=== PATIENT | male | born 1950 | race Caucasian/White ===

== ENCOUNTER 2019-11-20 00:32 | Emergency (ER) | payer BC, MEDICARE, OTHER ==
--- NOTE | 2019-11-20 00:47 | ER Document Report ---
ED Medical Screen (RME) - General Chief Complaint: Chest Congestion Stated Complaint: CONGESTION/COUGH/NAUSEA Time Seen by Provider: 11/20/19 00:40 Primary Care Provider: FIGUEROA TAN MD [Primary Care Provider] - Follow up as needed Mode of Arrival: Wheelchair Information source: Patient, Relative Notes: 69-year-old male with history of restless leg syndrome, high cholesterol and high blood pressure presents to the emergency department with his for complaints of fever nausea vomiting diarrhea cough since Friday. Reports symptoms started Friday. Reports he felt a little bit better so he went to work but symptoms are worse today. Has not received his flu vaccine. reports he was so weak she had to help him walk today. reports decreased p.o. intake. He reports he has only been able to eat 1 sugar cookie and a doughnut since Friday... along with grits and sausage yesterday and today. approved reports he has been drinking Pepsi and iced tea. also reports she has been treating him with [id number] flu medicine that has acetaminophen in it. Reports he vomited 30 minutes prior to arrival. Also reports he drink ice tea on the way here. reports he has felt really hot but she has not taken his temperature. Denies chest and abdominal pain. I have greeted and performed a rapid initial assessment of this patient. A comprehensive ED assessment and evaluation of the patient, analysis of test results and completion of the medical decision making process will be conducted by additional ED providers. Physical Exam - Vital signs Vitals: Temp Pulse Resp BP Pulse Ox 100.1 F 76 16 141/66 H 97 11/20/19 00:38 11/20/19 00:38 11/20/19 00:38 11/20/19 00:38 11/20/19 00:38 Course - Vital Signs Vital signs: Temp Pulse Resp BP Pulse Ox 100.1 F 76 16 141/66 H 97 11/20/19 00:38 11/20/19 00:38 11/20/19 00:38 11/20/19 00:38 11/20/19 00:38 Doctor's Discharge - Discharge Referrals: FIGUEROA TAN MD [Primary Care Provider] - Follow up as needed
[2019-11-20] MEDS ORDERED: ONDANSETRON HCL INJ/PF 4 MG/2 ML SDV IV ONE (00:48)
[2019-11-20] MEDS ORDERED: IBUPROFEN 800 MG TABLET PO ONE (00:48)
[2019-11-20] MEDS ORDERED: NORMAL SALINE 1000 ML 1,000 ML IV ONE (00:48)
[2019-11-20 01:33] LABS: ABSOLUTE LYMPHOCYTES (AUTO) 0.7 10^3/uL (0.5-4.7); ABSOLUTE MONOCYTES (AUTO) 0.6 10^3/uL (0.1-1.4); BASOPHILS % (AUTO) 0.7 % (0-2); HEMATOCRIT 37.2 % (37.9-51.0); HEMOGLOBIN 12.7 g/dL (13.5-17.0); LYMPHOCYTES % (AUTO) 17.1 % (13-45); MEAN CORPUSCULAR HEMOGLOBIN 29.8 pg (27.0-33.4); MEAN CORPUSCULAR HGB CONC 34.2 g/dL (32.0-36.0); MEAN CORPUSCULAR VOLUME 87 fl (80-97); MONOCYTES % (AUTO) 13.9 % (3-13); PLATELET COUNT 140 10^3/uL (150-450); RED BLOOD COUNT 4.27 10^6/uL (4.35-5.55); RED CELL DISTRIBUTION WIDTH 13.8 % (11.5-14.0); SEGMENTED NEUTROPHILS % (AUTO) 68.3 % (42-78); TOTAL CELLS COUNTED % (AUTO) 100 %; WHITE BLOOD COUNT 4.3 10^3/uL (4.0-10.5)
[2019-11-20 01:50] LABS: A TYPE INFLUENZA AG NEGATIVE (NEGATIVE); B INFLUENZA AG NEGATIVE (NEGATIVE)
[2019-11-20 01:56] LABS: ALBUMIN 3.4 g/dL (3.5-5.0); ALKALINE PHOSPHATASE 48 U/L (38-126); ANION GAP 7 (5-19); ASPARTATE AMINO TRANSFERASE 32 U/L (17-59); BILIRUBIN,TOTAL 0.4 mg/dL (0.2-1.3); BLOOD UREA NITROGEN 21 mg/dL (7-20); CALCIUM 8.2 mg/dL (8.4-10.2); CARBON DIOXIDE 24 mmol/L (22-30); CHLORIDE 100 mmol/L (98-107); GLUCOSE 137 mg/dL (75-110); POTASSIUM 3.7 mmol/L (3.6-5.0)
[2019-11-20] MEDS ORDERED: METOCLOPRAMIDE HCL INJ/PF 10 MG/2 ML SDV IV ONE (02:12)
[2019-11-20] MEDS ORDERED: PANTOPRAZOLE SODIUM 40 MG VIAL IV ONE (02:12)
--- NOTE | 2019-11-20 02:17 | ER Document Report ---
Entered by CRISTÓBAL RODRIGUEZ SCRIBE 11/20/19 0208 Acting as scribe for:JUWAN RIDER IV, MD ED General - General Chief Complaint: Flu Symptoms Stated Complaint: CONGESTION/COUGH/NAUSEA Time Seen by Provider: 11/20/19 00:40 Primary Care Provider: FIGUEROA TAN MD [Primary Care Provider] - Follow up as needed Mode of Arrival: Wheelchair Information source: Patient Notes: This 69-year-old male patient presents to the emergency department today with complaints of a cough, nasal congestion, and generalized body aches. Patient now has hiccups as well which he states he has had for the last 10 minutes and he states they are very uncomfortable. TRAVEL OUTSIDE OF THE [place] IN LAST 30 DAYS: No - Related Data Allergies/Adverse Reactions: No Known Allergies Allergy (Verified 11/20/19 01:31) Home Medications: requip, mirapex, amilodipine, Past Medical History - General Information source: Patient, Relative - Social History Smoking Status: Former Smoker Cigarette use (# per day): No Frequency of alcohol use: None Drug Abuse: None Family History: Reviewed & Not Pertinent Patient has suicidal ideation: No Patient has homicidal ideation: No Review of Systems - Review of Systems Constitutional: See HPI, Other - Hiccups EENT: See HPI, Nose congestion Cardiovascular: No symptoms reported Respiratory: See HPI, Cough Gastrointestinal: No symptoms reported Genitourinary: No symptoms reported Male Genitourinary: No symptoms reported Musculoskeletal: No symptoms reported Skin: No symptoms reported Hematologic/Lymphatic: No symptoms reported Neurological/Psychological: No symptoms reported -: Yes All other systems reviewed and negative Physical Exam - Vital signs Vitals: Temp Pulse Resp BP Pulse Ox 100.1 F 76 16 141/66 H 97 11/20/19 00:38 11/20/19 00:38 11/20/19 00:38 11/20/19 00:38 11/20/19 00:38 - Notes Notes: Physical Exam: General: Alert, appears uncomfortable. HEENT: Normocephalic. Atraumatic. PERRL. Extraocular movements intact. Oropharynx clear. Neck: Supple. Non-tender. Respiratory: No respiratory distress. Clear and equal breath sounds bilaterally. Cardiovascular: Regular rate and rhythm. Abdominal: Normal Inspection. Non-tender. No distension. Normal Bowel Sounds. Back: No gross abnormalities. Extremities: Moves all four extremities. Upper extremities: Normal inspection. Normal ROM. Lower extremities: Normal inspection. No edema. Normal ROM. Neurological: Normal cognition. AAOx4. Normal speech. Psychological: Normal affect. Normal Mood. Skin: Warm. Dry. Normal color. Course - Re-evaluation Re-evalutation: 11/20/19 02:57 Results of ED MSE discussed with patient and patient's . All questions were answered prior to discharge. Emergency signs and symptoms, reasons to return to the emergency department discussed with patient patient's . - Vital Signs Vital signs: Temp Pulse Resp BP Pulse Ox 100.1 F 76 16 141/66 H 97 11/20/19 00:38 11/20/19 00:38 11/20/19 00:38 11/20/19 00:38 11/20/19 00:38 - Laboratory Result Diagrams: 11/20/19 01:16 11/20/19 01:16 Laboratory results interpreted by me: 11/20/19 11/20/19 01:16 01:16 RBC 4.27 L Hgb 12.7 L Hct 37.2 L Plt Count 140 L [place] % (Auto) 13.9 H Sodium 131.0 L BUN 21 H Glucose 137 H Calcium 8.2 L Total Protein 6.0 L Albumin 3.4 L - EKG Interpretation by Me Additional EKG results interpreted by me: 11/20/19 02:18 EKG obtained on 11/20/2019 at 031 5 hours was interpreted by this MD. Findings: N ormal sinus rhythm, rate 80, normal axis, P waves proceed QRS complexes, QRS complexes appear narrow, there are no obvious patterns of ST segment elevation or depression to suggest acute myocardial ischemia or infarction. Impression normal sinus rhythm with nonspecific ST segments. Discharge - Discharge Clinical Impression: Viral syndrome Condition: Good Disposition: HOME, SELF-CARE Instructions: Viral Syndrome ([facility]), Fever ([facility]) Additional Instructions: Return to the Emergency Department without delay if any worse. HOME CARE INSTRUCTIONS & INFORMATION: Thank you for choosing us for your medical needs. We hope you're satisfied with the care you received. After you leave, you must properly care for your problem and, at the same time, observe its progress. Any condition can change. Some illnesses can change rapidly over hours or days. If your condition worsens, return to the Emergency Department or see your physician promptly. ABOUT YOUR X-RAYS AND EKG'S: If you had an EKG or X-rays taken, they have been read by the Emergency Physician. The X-rays and EKG's will also be read by a Radiologist or Certified Veterinary Technician within 24 hours. If discrepancies are noted, you will be notified by telephone. Please be certain the ED has a correct telephone number & address where you can be reached. Also, realize that some fractures or abnormalities do not show up on initial X-rays. If your symptoms continue, see your physician. ABOUT YOUR LABORATORY TEST: If you had laboratory tests, the results have been reviewed by the Emergency Physician. Some test results (for example cultures) may not be available for several days. You will be contacted if any test result shows you need additional treatment. Please be certain the ED has a correct telephone number and address where you can be reached. ABOUT YOUR MEDICATIONS: You will receive instructions on how to take your medicine on the prescription label you receive. Additional information may be provided by the Pharmacy. If you have questions afterwards, call the ED for clarification or further instructions. Some prescribed medications may cause dr owsiness. Do not perform tasks such as driving a car or operating machinery without consulting your Pharmacist. If you feel you need a refill of pain medication, your condition will need re-evaluation. Please do not call for a refill of any medication. ABOUT YOUR SIGNATURE: Signature of this document acknowledges to followin. Understanding that you received emergency treatment and that you may be released before al medical problems are known or treated. Please be certain the ED has a correct phone number & address where you can be reached. 2. Acknowledgement that you will arrange for follow-up care as recommended. 3. Authorization for the Emergency Physician to provide information to your follow-up Physician in order to maximize your care. AT ANY TIME, IF YOUR SYMPTOMS CHANGE SIGNIFICANTLY OR WORSEN OR YOU DEVELOP NEW SYMPTOMS, RETURN TO THE EMERGENCY DEPARTMENT IMMEDIATELY FOR RE-EVALUATION. OUR GOAL IS TO PROVIDE EXCELLENT MEDICAL CARE! WE HOPE THAT WE HAVE MET YOUR EXPECTATIONS DURING YOUR EMERGENCY DEPARTMENT VISIT AND THAT YOU FEEL YOU HAVE RECEIVED EXCELLENT CARE! Prescriptions: Ondansetron [Zofran Odt 4 mg Tablet] 1 tab PO Q8H PRN #[id number] tab.rapdis PRN Reason: For Nausea/Vomiting Referrals: FIGUEROA TAN MD [Primary Care Provider] - Follow up as needed I personally performed the services described in the documentation, reviewed and edited the documentation which was dictated to the scribe in my presence, and it accurately records my words and actions.
--- NOTE | 2019-11-20 02:21 | RADIOLOGY REPORT (SQ) ---
EXAM DESCRIPTION: XR CHEST 2 VIEWS COMPLETED DATE/TME: 11/20/2019 00:40 CLINICAL HISTORY: cough COMPARISON: None. FINDINGS: Frontal and lateral views of the chest. Cardiomediastinal silhouette: Tortuosity of the thoracic aorta. Lungs: No consolidation, pneumothorax, or pleural effusion. Bones: Degenerative change of the spine. Upper abdomen: Prior cholecystectomy. IMPRESSION: 1. No acute pulmonary process identified.
[2019-11-20] MEDS ORDERED: ACETAMINOPHEN 325 MG TABLET PO ONE (03:17)
[2019-11-20 03:33] VITALS: BP 143/64
--- NOTE | 2019-11-20 21:20 | EKG REPORT ---
SEVERITY:- OTHERWISE NORMAL ECG - SINUS RHYTHM BORDERLINE RIGHT AXIS DEVIATION : Confirmed by: Aura Toussaint MD 20-Nov-2019 21:19:49
== END 2019-11-20 03:33 | disposition home or self-care (01) ==
LOC: ER 00:32
DX: B34.9 Viral infection, unspecified (principal); R09.81 Nasal congestion; R05 Cough; R11.0 Nausea; M79.10 Myalgia, unspecified site; Z87.891 Personal history of nicotine dependence; Z79.899 Other long term (current) drug therapy
CPT/HCPCS: 93005; 99284; 96361; 96374; 96375; 36415; 85025; 80053; 87804; 71046; 93010; A9270; J2765; C9113; J2405; J7030